=== PATIENT | female | born 1970 | race Hispanic/Latino ===

== ENCOUNTER → 2018-10-01 | Emergency (ER) | payer OTHER ==
[~2018-10-01] MED LIST: CEFTRIAXONE/SWI 1gm 1 GM/10 ML SYR ONE; FENTANYL CITR 100 MCG/2 ML ONE; KETOROLAC 30 MG/ML INJ ONE; TRAMADOL HCL 50 MG TAB ONE
--- OUTSIDE RECORDS SUMMARY | 2018-10-01 00:47 | XMS REPORT ---
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 Problem Edema R60.9 Active Assessment Depression F32.9 Active Problem Anxiety F41.9 Active Problem Hyperlipemia E78.5 Active Problem Gastro-esophageal reflux disease K21.9 Active without esophagitis Problem Depression F32.9 Active Problem Fatigue R53.83 Active Problem Hand paresthesia R20.2 Active Problem Cervical pain (neck) M54.2 Active Problem Fe deficiency anemia D50.9 Active Problem Internal hemorrhoid K64.8 Active Problem Migraine without aura, not G43.009 Active intractable, without status migrainosus Problem Primary insomnia F51.01 Active Problem Mixed incontinence N39.46 Active Problem Cervical radiculopathy M54.12 Active Problem Dorsalgia, unspecified M54.9 Active Problem Back pain with radiation M54.9 Active Medications Medication Code System Code Instructions Start Date End Date Status Dosage Zoloft [facility] 88344780360 100 MG Orally Active 1 tablet Once a day Results No Known Results Summary Purpose eClinicalWorks Submission
--- OUTSIDE RECORDS SUMMARY | 2018-10-01 00:47 | XMS REPORT ---
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
--- OUTSIDE RECORDS SUMMARY | 2018-10-01 00:47 | XMS REPORT ---
[...] Active arteries Problem Edema R60.9 Active Assessment Foot pain, left M79.672 Active Assessment Plantar fasciitis M72.2 Active Problem Anxiety F41.9 Active Problem Hyperlipemia [...] with radiation M54.9 Active Medications Medication Code Code Instructions Start End Status Dosage System Date [facility] 13769120468 2 MG Orally Active 1 tablet Once a day immediately before bedtime Zyrtec [facility] 13995054350 10 MG Orally Active 1 tablet Allergy Once a day Vitamin D [facility] 38474678055 1000 UNIT Active 1 tablet (Cholecalcife Orally Once a rol) day Ferrous [facility] 24516961381 325 (65 Fe) MG Active 1 tablet Sulfate Orally Once a day Zoloft [facility] 43137859156 100 MG Orally Active 1 tablet Once a day Results Name Result Date Reference Range Unit Abnormality Flag Foot (L) X-Ray Summary Purpose eClinicalWorks Submission
--- OUTSIDE RECORDS SUMMARY | 2018-10-01 00:48 | XMS REPORT ---
[...] Start Date End Date Status Dosage Zoloft [facility] 67914611848 100 MG Orally Active 1 tablet Once a day Results No Known Results Summary Purpose eClinicalWorks Submission
--- OUTSIDE RECORDS SUMMARY | 2018-10-01 00:48 | XMS REPORT ---
:1970 Author Organization eClinicalWorks Care Team Providers Name Role Phone Wayne Alfonso Provider Role Unavailable Allergies No Known Allergies Problems Problem Type Condition Code Onset Dates Condition Status Problem Hyperlipemia E78.5 Active Problem Depression F32.9 Active Problem Fatigue R53.83 Active Problem Internal hemorrhoid K64.8 Active Problem Cervical pain (neck) M54.2 Active Problem Fe deficiency anemia D50.9 Active Problem Hand paresthesia R20.2 Active Problem Migraine without status G43.909 Active migrainosus, not intractable, unspecified migraine type Problem Vitamin D deficiency E55.9 Active Problem Edema R60.9 Active Problem 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 Problem Anxiety F41.9 Active Problem Migraine without aura, not G43.009 Active intractable, without status migrainosus Problem Primary insomnia F51.01 Active Problem Mixed incontinence N39.46 Active Problem Dorsalgia, unspecified M54.9 Active Problem Degenerative joint disease M19.90 Active Problem Kidney stone N20.0 Active Problem Cervical radiculopathy M54.12 Active Problem Obstructive sleep apnea G47.33 Active Assessment Depression F32.9 Active Problem Back pain with radiation M54.9 Active Problem Gastro-esophageal reflux disease K21.9 Active without esophagitis Medications Medication Code System Code Instructions Start Date End Date Status Dosage Zoloft [facility] 28093572370 100 MG Orally Active 1 tablet Once a day Results No Known Results Summary Purpose eClinicalWorks Submission
--- OUTSIDE RECORDS SUMMARY | 2018-10-01 00:48 | XMS REPORT ---
[...] Active arteries Problem Edema R60.9 Active Assessment Acute cystitis without hematuria N30.00 Active Problem Anxiety F41.9 Active Problem Hyperlipemia [...] Instructions Start End Status Dosage System Date Date Vitamin D [facility] 29204483705 1000 UNIT Active 1 tablet (Cholecalcife Orally Once a rol) day Zoloft [facility] 21778798779 100 MG Orally Active 1 tablet Once a day Ferrous [place] 10730285130 325 (65 Fe) MG Active 1 tablet Sulfate Orally Once a day Bactrim DS [facility] 39689567555 800-160 MG March 20March Active 1 tablet Orally Twice a 2017 Zyrtec [facility] 59128283602 10 MG Orally Active 1 tablet Allergy Once a day Lunesta [facility] 55144164863 1 MG Orally Active 1 tablet Once a day immediately before bedtime Results No Known Results Summary Purpose eClinicalWorks Submission
--- OUTSIDE RECORDS SUMMARY | 2018-10-01 00:48 | XMS REPORT ---
:1970 Author Organization eClinicalWorks Care Team Providers Name Role Phone Wayne Alfonso Provider Role Unavailable Allergies No Known Allergies Problems Problem Type Condition Code Onset Dates Condition Status Assessment Back pain with radiation M54.9 Active Assessment Gastro-esophageal reflux disease K21.9 Active without esophagitis Assessment Primary insomnia F51.01 Active Assessment Obstructive sleep apnea G47.33 Active Assessment Vitamin D deficiency E55.9 Active Assessment Anxiety F41.9 Active Assessment Fe deficiency anemia D50.9 Active Assessment Hyperlipemia E78.5 Active Problem Obstructive sleep apnea G47.33 Active Assessment Migraine without status G43.909 Active migrainosus, not intractable, unspecified migraine type Problem Gastro-esophageal reflux disease K21.9 Active without esophagitis Assessment Depression F32.9 Active Problem Hyperlipemia E78.5 Active Problem Depression F32.9 Active Problem Fatigue R53.83 Active Problem Internal hemorrhoid K64.8 Active Problem Fe deficiency anemia D50.9 Active Problem Cervical pain (neck) M54.2 Active Problem Hand paresthesia R20.2 Active Problem [...] Active Problem Cervical radiculopathy M54.12 Active Problem Back pain with radiation M54.9 Active Medications Medication Code Code Instructions Start End Status Dosage System Date Date Zoloft [facility] 03760774938 100 MG Orally Active 1 tablet Once a day Vitamin D [facility] 89028993541 1000 UNIT Active 1 tablet (Cholecalcife Orally Once a rol) day Bupap [facility] 64122135647 50-300 MG March 28, Active 1 tablet as Orally every 2017 needed hrs PRN WARD Zyrtec [facility] 00719356994 10 MG Orally Active 1 tablet Allergy Once a day Ferrous [facility] 60008585702 325 (65 Fe) MG Active 1 tablet Sulfate Orally Once a day Lunesta [facility] 59509140323 2 MG Orally Active 1 tablet Once a day immediately before bedtime Results No Known Results Summary Purpose eClinicalWorks Submission
--- OUTSIDE RECORDS SUMMARY | 2018-10-01 00:48 | XMS REPORT ---
[...] Problem Obstructive sleep apnea G47.33 Active Assessment Acute cystitis without hematuria N30.00 Active Problem Back pain with radiation M54.9 Active Problem Gastro-esophageal reflux disease K21.9 Active without esophagitis Medications Medication Code System Code Instructions Start End Date Status Dosage Date Cipro ND 37331764538 500 MG Orally Apr 22, Active 1 tablet every 12 hrs 2017 Bactrim DS ND 92094574139 800-160 MG Apr 18, Apr 23, Inactive 1 tablet Orally Twice a 20172017 Results No Known Results Summary Purpose eClinicalWorks Submission
--- OUTSIDE RECORDS SUMMARY | 2018-10-01 00:48 | XMS REPORT ---
[...] Problem Obstructive sleep apnea G47.33 Active Problem Back pain with radiation M54.9 Active Problem Gastro-esophageal reflux disease K21.9 Active without esophagitis Medications Medication Code Code Instructions Start End Date Status Dosage System Date Zyrtec Allergy [facility] 74135468156 10 MG Orally December Active 1 tablet Once a day 2018 Results No Known Results Summary Purpose eClinicalWorks Submission
--- OUTSIDE RECORDS SUMMARY | 2018-10-01 00:48 | XMS REPORT ---
[...] M19.90 Active Problem Kidney stone N20.0 Active Assessment Recurrent UTI N39.0 Active Problem Cervical radiculopathy M54.12 Active Problem Obstructive sleep apnea G47.33 Active Assessment Acute cystitis without hematuria N30.00 Active Problem Back pain with radiation M54.9 Active Problem Gastro-esophageal reflux disease K21.9 Active without esophagitis Medications Medication Code Code Instructions Start End Status Dosage System Date Date Vitamin D [facility] 03412815753 1000 UNIT Active 1 tablet (Cholecalcife Orally Once a rol) day Zoloft ND 96509853409 100 MG Orally Active 1 tablet Once a day Bupap [facility] 81037917279 50-300 MG March 28, Active 1 tablet as Orally every 8 2017 needed hrs PRN WARD Lunesta [facility] 54257705866 2 MG Orally Active 1 tablet Once a day immediately before bedtime Bactrim DS [facility] 40142313330 800-160 MG Apr 18, Apr 23, Active 1 tablet Orally Twice a 2018 2018 day Ferrous ND 17762100726 325 (65 Fe) MG Active 1 tablet Sulfate Orally Once a day [facility] 11688546940 10 MG Orally Active 1 tablet Allergy Once a day Results No Known Results Summary Purpose eClinicalWorks Submission
[2018-10-01 01:36] LABS: Absolute Lymphocytes (CBC) 2.2 K/uL (0.7-4.9); Absolute Monocytes 0.6 K/uL (0.1-1.3); Absolute Neutrophil 3.8 K/uL (1.8-8.0); Basophils % 1.1 % (0-1.3); Eosinophils % 4.2 % (0-4.4); Hematocrit 41.8 % (36.0-45.0); Lymphocytes % 31.7 % (15.3-44.8); MPV 7.7 fL (7.6-11.3); Monocytes % 8.9 % (3.3-12.3); RBC Red Blood Cell Count 4.66 M/uL (3.86-4.86)
[2018-10-01 01:59] LABS: ALT/SGPT 24 U/L (12-78); AST/SGOT 21 U/L (15-37); Albumin 3.7 g/dL (3.4-5.0); Alkaline Phosphatase 92 U/L (45-117); BUN Blood Urea Nitrogen 23 mg/dL (7-18); Bicarbonate 26 mmol/L (21-32); Bilirubin Direct < 0.1 mg/dL (0-0.2); Bilirubin Total 0.2 mg/dL (0.2-1.0); Glucose Level 91 mg/dL (74-106); Lipase 121 U/L (73-393); Potassium 3.7 mmol/L (3.5-5.1); Protein, Total 7.6 g/dL (6.4-8.2); Sodium Level 143 mmol/L (136-145)
[2018-10-01 02:03] LABS: Urine Bacteria >50 /HPF (<20); Urine Culture Reflex Order REFLEXED; Urine RBC NONE SEEN /HPF (NONE SEEN)
--- NOTE | 2018-10-01 08:30 | RAD REPORT ---
EXAM DESCRIPTION: CT - Stone Protocol - 10/01/2018 6:56 am CLINICAL HISTORY: Flank pain. Pain COMPARISON: Abdomen Pelvis W Contrast dated 01/03/2017; Small Bowel Series dated 09/19/2018 TECHNIQUE: Axial images were obtained without oral or IV contrast. Lack of contrast limits solid org an and vascular assessment. The [id number] spans the entirety of the system partially obscuring uppermost abdomen and lung bases. Coronal reformatted images were obtained and reviewed. All CT scans are performed using dose optimization technique as appropriate and may include automated exposure control or mA/KV adjustment according to patient size. FINDINGS: The lower lung rodriguez are clear. Imaged portions of the liver and spleen show no suspicious findings on non-contrast imaging. The panc reas and adrenal glands are normal.Cholelithiasis. No pathologic lymphadenopathy in the abdomen or pe lvis. Punctate right nephrolithiasis is seen without hydronephrosis. No bowel obstruction, free air, free fluid or abscess. Normal appendix noted. Moderate lumbosacral degenerative changes. IMPRESSION: Cholelithiasis. Punctate right nephrolithiasis without hydronephrosis.
== END ==
LOC: ER 00:44
DX: N39.0 Urinary tract infection, site not specified (principal); F32.9 Major depressive disorder, single episode, unspecified; Z88.5 Allergy status to narcotic agent; Z87.442 Personal history of urinary calculi
CPT/HCPCS: 36415; 74176; 76377; 80048; 80076; 81015; 83690; 85025; 87077; 87086; 87088; 87186; J0696; J3010

== ENCOUNTER 2019-09-30 01:04 | Emergency (ER) | payer OTHER ==
--- OUTSIDE RECORDS SUMMARY | 2019-09-30 01:08 | XMS REPORT ---
:1970 Author Organization eClinicalWorks Care Team Providers Name Role Phone Brian Perez Provider Role Unavailable Allergies, Adverse Reactions, Alerts Substance Reaction Event Type codeine Info Not Available Drug Allergy Problems Problem Type Condition Code Onset Dates [...] Start End Status Dosage System Date Date Ferrous Sulfate [facility] 77149539809 325 (65 Fe) MG Active 1 tablet Orally Once a day Zoloft ND 26031007889 100 MG Orally Active 1 tablet Once a day Cyclobenzaprine ND 42558714441 10 MG Orally Active 1 tablet as HCl Three times a needed day Bupap ND 21730349353 50-300 MG March Active 1 tablet as Orally every 8 19, needed hrs PRN 2017 Vitamin D [facility] 37775487262 1000 UNIT Active 1 tablet (Cholecalciferol) Orally Once a day Zyrtec Allergy [facility] 34182963195 10 MG Orally December Active 1 tablet Once a day 2018 Cipro NDC 19703013502 500 MG Orally Apr 22, Active 1 tablet every 12 hrs 2017 Tramadol HCl [facility] 14540689239 50 MG Orally Active 1 tablet as every 6 hrs needed Lunesta [facility] 79630759452 1 MG Orally Active 1 tablet Once a day immediately before bedtime Results No Known Results Summary Purpose eClinicalWorks Submission
--- OUTSIDE RECORDS SUMMARY | 2019-09-30 01:08 | XMS REPORT ---
:1970 Author Organization eClinicalWorks Care Team Providers Name Role Phone Wayne Alfonso Provider Role Unavailable Allergies No Known Allergies Problems Problem Type Condition Code Onset Dates Condition Status Problem Fatigue R53.83 Active Problem Edema R60.9 Active Problem Depression F32.9 Active Problem Migraine without status G43.909 Active migrainosus, not intractable, unspecified migraine type Problem Mixed incontinence N39.46 Active Problem Internal hemorrhoid K64.8 Active Problem Cervical pain (neck) M54.2 Active Problem Hand paresthesia R20.2 Active Problem Osteoarthritis of left hip, M16.12 Active unspecified osteoarthritis type Problem Anxiety F41.9 Active Problem Vitamin D deficiency E55.9 Active Problem Fe deficiency anemia D50.9 Active Problem 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 Problem Primary insomnia F51.01 Active Problem Cervical radiculopathy M54.12 Active Problem Dorsalgia, unspecified M54.9 Active Problem Migraine without aura, not G43.009 Active intractable, without status migrainosus Problem Kidney stone N20.0 Active Problem Obstructive sleep apnea G47.33 Active Assessment Depression F32.9 Active Problem Back pain with radiation M54.9 Active Problem Gastro-esophageal reflux disease K21.9 Active without esophagitis Problem Degenerative joint disease M19.90 Active Problem Hyperlipemia E78.5 Active Medications Medication Code Code Instructions Start End Date Status Dosage System Date Zyrtec Allergy [facility] 04988911695 10 MG Orally Active 1 tablet Once a day Zoloft [facility] 05497437759 100 MG Orally Active 1 tablet Once a day Results No Known Results Summary Purpose eClinicalWorks Submission
--- OUTSIDE RECORDS SUMMARY | 2019-09-30 01:08 | XMS REPORT ---
:1970 Author Organization eClinicalWorks Care Team Providers Name Role Phone Kaden Wayne Provider Role Unavailable Allergies, Adverse Reactions, Alerts Substance Reaction Event Type codeine Info Not Available Drug Allergy Problems Problem Type Condition Code Onset Dates Condition Status Assessment Gastro-esophageal reflux disease K21.9 Active without esophagitis Assessment Primary insomnia F51.01 Active Assessment Anxiety F41.9 Active Assessment Obstructive sleep apnea G47.33 Active Assessment Migraine without status G43.909 Active migrainosus, not intractable, unspecified migraine type Assessment Osteoarthritis of left hip, M16.12 Active unspecified osteoarthritis type Assessment Vitamin D deficiency E55.9 Active Assessment Fe deficiency anemia D50.9 Active Assessment Hyperlipemia E78.5 Active Problem Gastro-esophageal reflux disease K21.9 Active without esophagitis Assessment Depression F32.9 Active Problem Hyperlipemia E78.5 Active Problem Fatigue R53.83 Active Problem Edema R60.9 Active Problem Depression F32.9 Active Problem Migraine without status G43.909 Active migrainosus, not intractable, unspecified migraine type Problem Internal hemorrhoid K64.8 Active Problem Mixed incontinence N39.46 Active Problem Cervical pain (neck) M54.2 Active Problem Osteoarthritis of left hip, M16.12 Active unspecified osteoarthritis type Problem Hand paresthesia R20.2 Active Problem Anxiety F41.9 Active Problem Vitamin D deficiency E55.9 Active Problem Fe deficiency anemia D50.9 Active Problem 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 Problem Primary insomnia F51.01 Active Assessment Back pain with radiation M54.9 Active Problem Cervical radiculopathy M54.12 Active Problem Dorsalgia, unspecified M54.9 Active Problem Migraine without aura, not G43.009 Active intractable, without status migrainosus Problem Kidney stone N20.0 Active Problem Obstructive sleep apnea G47.33 Active Problem Back pain with radiation M54.9 Active Problem Degenerative joint disease M19.90 Active Medications Medication Code Code Instructions Start End Status Dosage System Date Date Vitamin D3 [facility] 59321236235 42423 UNIT November Active 1 capsule Orally Once a 04, week x 12 2019 weeks Breo Ellipta [facility] 55639732955 100-25 MCG/INH Active 1 puff Inhalation Once a day Vitamin D [facility] 63540105790 1000 UNIT Active 1 tablet (Cholecalciferol) Orally Once a day Lunesta [facility] 32606106745 2 MG Orally Active 1 tablet Once a day immediately before bedtime Cyclobenzaprine [facility] 71102519483 10 MG Orally Active 1 tablet as HCl Three times a needed day Bupap [facility] 44145555212 50-300 MG Active 1 tablet as Orally every 8 needed hrs PRN WARD Zoloft [facility] 62341108469 100 MG Orally Active 1 tablet Once a day Ferrous Sulfate [facility] 97573525857 325 (65 Fe) MG Active 1 tablet Orally Once a day Zyrtec Allergy [facility] 60750431359 10 MG Orally Active 1 tablet Once a day Zoloft [facility] 75196841970 100 MG Orally Active 1 tablet Once a day Tramadol HCl [facility] 84018595276 50 MG Orally Active 1 tablet as every 6 hrs needed Results No Known Results Summary Purpose eClinicalWorks Submission
--- OUTSIDE RECORDS SUMMARY | 2019-09-30 01:09 | XMS REPORT ---
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 Problem Hyperlipemia E78.5 Active Problem Fe deficiency anemia D50.9 Active Problem Right lower quadrant abdominal pain R10.31 Active Problem Pelvic pain R10.2 Active Problem Cervical radiculopathy M54.12 Active Problem Primary insomnia F51.01 Active Problem Bipolar II disorder F31.81 Active Problem Migraine without aura, not G43.009 Active intractable, without status migrainosus Problem Migraine without status G43.909 Active migrainosus, not intractable, unspecified migraine type Problem Internal hemorrhoid K64.8 Active Problem Follow up Z09 Active Problem Osteoarthritis of left hip, M16.12 Active unspecified osteoarthritis type Problem Depression F32.9 Active Problem Edema R60.9 Active Problem Back pain with radiation M54.9 Active Problem Fatigue R53.83 Active Problem Degenerative joint disease M19.90 Active Problem Kidney stone N20.0 Active Problem Vitamin D deficiency E55.9 Active Problem Anxiety F41.9 Active Medications Medication Code System Code Instructions Start End Date Status Dosage Date Bactrim DS [facility] 56201933049 800-160 MG Orally November 21, November 24, Active 1 tablet Twice a day 2018 2018 Results No Known Results Summary Purpose eClinicalWorks Submission
--- OUTSIDE RECORDS SUMMARY | 2019-09-30 01:09 | XMS REPORT ---
[...] Problem Anxiety F41.9 Active Medications Medication Code Code Instructions Start End Status Dosage System Date Date Lunesta [facility] 25050680661 2 MG Orally Active 1 tablet Once a day immediately before bedtime Zoloft [facility] 23451862945 100 MG Orally Active 1 tablet Once a day HydrOXYzine HCl [facility] 48544201001 25 MG Orally Active 1 tablet as every 8 hrs needed Prazosin HCl [facility] 69647628260 1 MG Orally Active 1 capsule at Once a day bedtime Vitamin D [facility] 43285988999 1000 UNIT Active 1 tablet (Cholecalciferol) Orally Once a day Cyclobenzaprine [facility] 88258702016 10 MG Orally Active 1 tablet as HCl Three times a needed day Breo Ellipta [facility] 06878681935 100-25 MCG/INH Active 1 puff Inhalation Once a day Zoloft ND 92206599170 100 MG Orally Active 1 tablet Once a day Zyrtec Allergy [facility] 13392980358 10 MG Orally Active 1 tablet Once a day Vitamin D3 [facility] 21752521579 November Active 1 capsule Orally Once a 04, week x 12 2019 weeks Ferrous Sulfate [facility] 06188710171 325 (65 Fe) MG Active 1 tablet Orally Once a day Tramadol HCl [facility] 77177426899 50 MG Orally Active 1 tablet as every 6 hrs needed Bupap [facility] 67646226163 50-300 MG Active 1 tablet as Orally every 8 needed hrs PRN WARD Results No Known Results Summary Purpose eClinicalWorks Submission
--- OUTSIDE RECORDS SUMMARY | 2019-09-30 01:09 | XMS REPORT ---
[...] E55.9 Active Problem Anxiety F41.9 Active Medications No Known Medications Results No Known Results Summary Purpose eClinicalWorks Submission
--- OUTSIDE RECORDS SUMMARY | 2019-09-30 01:09 | XMS REPORT ---
:1970 Author Organization eClinicalWorks Care Team Providers Name Role Phone Trveor Desai Provider Role Unavailable Allergies, Adverse Reactions, Alerts Substance Reaction Event Type Cipro hives Drug Allergy Problems Problem Type Condition Code Onset Dates Condition Status Assessment Right lower quadrant abdominal pain R10.31 Active Assessment Recurrent urinary tract infection N39.0 Active Assessment Pelvic pain R10.2 Active Assessment Follow up Z09 Active Problem Hand paresthesia R20.2 Active Problem [...] Start End Status Dosage System Date Date Cyclobenzaprine ND 07426372043 10 MG Orally Active 1 tablet as HCl Three times a needed day Breo Ellipta ND 81321524966 100-25 MCG/INH Active 1 puff Inhalation Once a day Zyrtec Allergy ND 79507332695 10 MG Orally Active 1 tablet Once a day Vitamin D3 [facility] 78536045493 17694 UNIT November Active 1 capsule Orally Once a 04, week x 12 2019 weeks Lunesta [facility] 99729834298 2 MG Orally Active 1 tablet Once a day immediately before bedtime Zoloft [facility] 98062482073 100 MG Orally Active 1 tablet Once a day Bupap [facility] 80656818368 50-300 MG Active 1 tablet as Orally every 8 needed hrs PRN WARD Tramadol HCl [facility] 78924382670 50 MG Orally Active 1 tablet as every 6 hrs needed Zoloft [facility] 53320616880 100 MG Orally Active 1 tablet Once a day Ferrous Sulfate [facility] 18060336703 325 (65 Fe) MG Active 1 tablet Orally Once a day Vitamin D [facility] 81098924529 1000 UNIT Active 1 tablet (Cholecalciferol) Orally Once a day Results No Known Results Summary Purpose eClinicalWorks Submission
--- OUTSIDE RECORDS SUMMARY | 2019-09-30 01:09 | XMS REPORT ---
[...] Start End Date Status Dosage System Date Amoxicillin-Pot [facility] 71251746709 875-125 MG November Active 1 tablet Clavulanate Orally every 12 2018 hrs Results No Known Results Summary Purpose eClinicalWorks Submission
--- OUTSIDE RECORDS SUMMARY | 2019-09-30 01:10 | XMS REPORT ---
:1970 Author Organization eClinicalWorks Care Team Providers Name Role Phone Jose Stokes Provider Role Unavailable Allergies No Known Allergies [...]
--- OUTSIDE RECORDS SUMMARY | 2019-09-30 01:10 | XMS REPORT ---
:1970 Author Organization eClinicalWorks Care Team Providers Name Role Phone Wayne Alfonso Provider Role Unavailable Allergies No Known Allergies Problems Problem Type Condition Code Onset Dates Condition Status Assessment Vitamin D deficiency E55.9 Active Assessment Fe deficiency anemia D50.9 Active Assessment Hyperlipemia E78.5 Active Assessment Gastro-esophageal reflux disease K21.9 Active without esophagitis Assessment Depression F32.9 Active Problem Hand paresthesia R20.2 Active Problem Cervical pain (neck) M54.2 Active Problem Mixed incontinence N39.46 Active Problem Dorsalgia, unspecified M54.9 Active Problem Gastro-esophageal reflux disease K21.9 Active without esophagitis Problem 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 Problem Migraine without aura, not G43.009 Active intractable, without status migrainosus Problem Fe deficiency anemia D50.9 Active Problem Internal hemorrhoid K64.8 Active Problem Hyperlipemia E78.5 Active Problem Adult BMI 45.0-49.9 kg/sq m Z68.42 Active Problem Follow up Z09 Active Problem Back pain with radiation M54.9 Active Problem Cervical radiculopathy M54.12 Active Problem Bipolar II disorder F31.81 Active Problem Primary insomnia F51.01 Active Problem Osteoarthritis of left hip, M16.12 Active unspecified osteoarthritis type Problem Migraine without status G43.909 Active migrainosus, not intractable, unspecified migraine type Problem Right lower quadrant abdominal pain R10.31 Active Problem Pelvic pain R10.2 Active Assessment Adult BMI 45.0-49.9 kg/sq m Z68.42 Active Problem Edema R60.9 Active Assessment Migraine without status G43.909 Active migrainosus, not intractable, unspecified migraine type Problem Vitamin D deficiency E55.9 Active Problem Fatigue R53.83 Active Problem Depression F32.9 Active Problem Kidney stone N20.0 Active Problem Obstructive sleep apnea G47.33 Active Problem Anxiety F41.9 Active Problem Degenerative joint disease M19.90 Active Medications No Known Medications Results No Known Results Summary Purpose eClinicalWorks Submission
--- OUTSIDE RECORDS SUMMARY | 2019-09-30 01:10 | XMS REPORT ---
:1970 Author Organization eClinicalWorks Care Team Providers Name Role Phone AlfonsoWayne Provider Role Unavailable Allergies, Adverse Reactions, Alerts Substance Reaction Event Type Cipro hives Drug Allergy Problems Problem Type Condition Code Onset Dates Condition Status Assessment Vitamin D deficiency E55.9 Active Assessment Osteoarthritis of left hip, M16.12 Active unspecified osteoarthritis type Assessment Hyperlipemia E78.5 Active Assessment Fe deficiency anemia D50.9 Active Assessment Depression F32.9 Active Problem Hand paresthesia [...] M54.9 Active Problem Cervical radiculopathy M54.12 Active Assessment Adult BMI 45.0-49.9 kg/sq m Z68.42 Active Problem Bipolar II disorder F31.81 Active Problem Primary insomnia F51.01 Active Problem Osteoarthritis of left hip, M16.12 Active unspecified osteoarthritis type Problem Migraine without status G43.909 Active migrainosus, not intractable, unspecified migraine type Problem Right lower quadrant abdominal pain R10.31 Active Problem Pelvic pain R10.2 Active Assessment Anxiety F41.9 Active Problem Edema R60.9 Active Assessment Migraine without status G43.909 Active migrainosus, not intractable, unspecified migraine type Problem Vitamin D deficiency E55.9 Active Assessment Gastro-esophageal reflux disease K21.9 Active without esophagitis Problem Fatigue R53.83 Active Assessment Obstructive sleep apnea G47.33 Active Problem Depression F32.9 Active Assessment Back pain with radiation M54.9 Active Problem Kidney stone N20.0 Active Assessment Primary insomnia F51.01 Active Problem Obstructive sleep apnea G47.33 Active Problem Anxiety F41.9 Active Problem Degenerative joint disease M19.90 Active Medications Medication Code Code Instructions Start End Status Dosage System Date Date Zyrtec Allergy [facility] 34511474613 10 MG Orally Active 1 tablet Once a day Lunesta [facility] 43445279112 2 MG Orally Active 1 tablet Once a day immediately before bedtime Bupap [facility] 69546511672 50-300 MG Active 1 tablet as Orally every 8 needed hrs PRN WARD Zoloft [facility] 11508115731 50 MG Orally Active 1 tablet Once a day Vitamin D [facility] 08225086632 1000 UNIT Active 1 tablet (Cholecalciferol) Orally Once a day Zoloft [facility] 09571523196 100 MG Orally Active 1 tablet Once a day Vitamin D3 [facility] 36959977534 81802 UNIT Active 1 capsule Orally Once a week x 12 weeks Cyclobenzaprine [facility] 60005231235 10 MG Orally Active 1 tablet as HCl Three times a needed day Fenofibrate [facility] 62936933443 145 MG Orally January 08, Active 1 tablet with Once a day 2018 food Breo Ellipta [facility] 25010427501 100-25 MCG/INH Active 1 puff Inhalation Once a day Ferrous Sulfate [facility] 87169491603 325 (65 Fe) MG Active 1 tablet Orally Once a day Results No Known Results Summary Purpose eClinicalWorks Submission
--- OUTSIDE RECORDS SUMMARY | 2019-09-30 01:11 | XMS REPORT ---
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 Problem Fe deficiency anemia D50.9 Active Problem Primary insomnia F51.01 Active Problem Hyperlipemia E78.5 Active Problem Migraine without status G43.909 Active migrainosus, not intractable, unspecified migraine type Problem Internal hemorrhoid K64.8 Active Problem Bipolar II disorder F31.81 Active Problem Adult BMI 45.0-49.9 kg/sq m Z68.42 Active Problem Fatigue R53.83 Active Problem Back pain with radiation M54.9 Active Problem Non-seasonal allergic rhinitis, J30.89 Active unspecified trigger Problem Cervical radiculopathy M54.12 Active Problem Pelvic pain R10.2 Active Problem Osteoarthritis of left hip, M16.12 Active unspecified osteoarthritis type Problem Follow up Z09 Active Problem Right lower quadrant abdominal pain R10.31 Active Problem Vitamin D deficiency E55.9 Active Problem Anxiety F41.9 Active Problem Depression F32.9 Active Problem Edema R60.9 Active Problem Obstructive sleep apnea G47.33 Active Problem Gastro-esophageal reflux disease K21.9 Active without esophagitis Problem Degenerative joint disease M19.90 Active Problem Kidney stone N20.0 Active Medications No Known Medications Results No Known Results Summary Purpose eClinicalWorks Submission
--- OUTSIDE RECORDS SUMMARY | 2019-09-30 01:11 | XMS REPORT ---
:1970 Author Organization eClinicalWorks Care Team Providers Name Role Phone Kaden Wayne Provider Role Unavailable Allergies, Adverse Reactions, Alerts Substance Reaction Event Type Cipro hives Drug Allergy Problems Problem Type Condition Code Onset Dates Condition Status Assessment Hyperlipemia E78.5 Active Assessment Fe deficiency anemia D50.9 Active Assessment Acute cystitis without hematuria N30.00 Active Assessment Depression F32.9 Active Problem Hand [...] Problem Back pain with radiation M54.9 Active Assessment Primary insomnia F51.01 Active Problem Non-seasonal allergic rhinitis, J30.89 Active unspecified trigger Problem Cervical radiculopathy M54.12 Active Assessment Back pain with radiation M54.9 Active Problem Pelvic pain R10.2 Active Assessment Adult BMI 45.0-49.9 kg/sq m Z68.42 Active Problem Osteoarthritis of left hip, M16.12 Active unspecified osteoarthritis type Assessment Non-seasonal allergic rhinitis, J30.89 Active unspecified trigger Problem Follow up Z09 Active Problem Right lower quadrant abdominal pain R10.31 Active Assessment Osteoarthritis of left hip, M16.12 Active unspecified osteoarthritis type Problem Vitamin D deficiency E55.9 Active Assessment Vitamin D deficiency E55.9 Active Problem Anxiety F41.9 Active Assessment Anxiety F41.9 Active Problem Depression F32.9 Active Assessment Migraine without status G43.909 Active migrainosus, not intractable, unspecified migraine type Problem Edema R60.9 Active Assessment Gastro-esophageal reflux disease K21.9 Active without esophagitis Problem Obstructive sleep apnea G47.33 Active Assessment Obstructive sleep apnea G47.33 Active Problem Gastro-esophageal reflux disease K21.9 Active without esophagitis Problem Degenerative joint disease M19.90 Active Problem Kidney stone N20.0 Active Medications Medication Code Code Instructions Start End Status Dosage System Date Date Cyclobenzaprine [facility] 66309974343 10 MG Orally Active 1 tablet as HCl Three times a needed day Cetirizine HCl [facility] 91287476512 10 MG Active TAKE ONE (1) TABLET(S) BY MOUTH ONCE A DAY. Zyrtec Allergy [facility] 15088456014 10 MG Orally Active 1 tablet Once a day Lunesta [facility] 18992809316 2 MG Orally Active 1 tablet Once a day immediately before bedtime Zoloft [facility] 27193568724 100 MG Orally Active 1 tablet (100 Once a day + 50) Aripiprazole [facility] 48675221413 10 MG Oral Active TAKE ONE (1) TABLET(S) BY MOUTH AT BEDTIME. Zoloft [facility] 22996531176 50 MG Orally Active 1 tablet (100 Once a day + 50) Vitamin D3 [facility] 92334445900 74185 UNIT Active 1 capsule Orally Once a week x 12 weeks Bupap [facility] 77753684148 50-300 MG Active 1 tablet as Orally every 8 needed hrs PRN WARD Vitamin D [facility] 69165189623 1000 UNIT Active 1 tablet (Cholecalciferol) Orally Once a day Ferrous Sulfate [facility] 55651345938 325 (65 Fe) MG Active 1 tablet Orally Once a day Nitrofurantoin [facility] 70307227899 100 MG Orally Sep 15Sep Active 1 capsule at Monohyd Macro BID 2019 11, bedtime with 2019 food Pyridium ND 73331334431 200 MG Orally Sep 15Sep Active 1 tablet Three times a 2019 08, after meals day 2019 HydrOXYzine HCl [facility] 35166605486 50 MG Oral Active TAKE ONE (1) TABLET(S) BY MOUTH THREE TIMES A DAY NEEDED FOR ACUTE ANXIETY OR INSOMNIA. Fenofibrate [facility] 94799467712 145 MG Orally Active 1 tablet with Once a day food Breo Ellipta [facility] 07544037045 100-25 MCG/INH Active 1 puff Inhalation Once a day Zyrtec Allergy [facility] 62582897506 10 MG Orally Active 1 tablet Once a day Prazosin HCl [facility] 17512081994 1 MG Oral Active TAKE ONE (1) CAPSULE(S) BY MOUTH ONCE A DAY AT BEDTIME. Results Name Result Date Reference Range Unit Abnormality Flag Urine Dip Stick ----Appearance Cloudy 20190915 ----SP. Gr 1.030 20190915 ----pH 6.0 20190915 ----Ketone Trace 20190915 ----Glucose NEG 20190915 ----Blood 3+ 20190915 ----Protein 3+ 20190915 ----Nitrite POS 20190915 ----Leukocytes 3+ 20190915 Summary Purpose eClinicalWorks Submission
--- OUTSIDE RECORDS SUMMARY | 2019-09-30 01:11 | XMS REPORT ---
[...] Start End Status Dosage System Date Date Bactrim DS NDC 68098409618 800-160 MG Sep 19Sep Active 1 tablet Orally Twice a 2019, day 2019 Nitrofurantoin NDC 16036883228 100 MG Orally Inactive 1 capsule Monohyd Macro BID at bedtime with food Results No Known Results Summary Purpose eClinicalWorks Submission
[2019-09-30] MEDS ORDERED: DIPHENHYDRAMINE 50 MG/ML VIAL ONE (01:30)
[2019-09-30] MEDS ORDERED: FAMOTIDINE 20 MG TAB ONE (01:31)
[2019-09-30] MEDS ORDERED: predniSONE 20 MG TAB ONE (01:31)
--- NOTE | 2019-09-30 02:19 | EDPHYS ---
Physician Documentation [facility] Name: Cori Wallace Age: 49 yrs Sex: Female : 1970 Arrival Date: 09/30/2019 Time: 01:09 Bed 17 Private MD: ED Physician Uriah Jacob HPI: 09/30 02:13 This 49 yrs old Female presents to ER via Ambulatory with complaints of Hives, snw Lips Swelling. 02:13 Onset: The symptoms/episode began/occurred suddenly. Associated signs and symptoms: snw Pertinent positives: rash all over and lips swelling. The patient has not experienced similar symptoms in the past. The patient has been recently seen by a physician: pt has been on two different abx for a UTI. Just finished Bactrim. Will send urine for culture.. encouraged to list Sulfa as an allergy and not take Bactrim again. 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 - Social history:: Smoking status: Patient denies any tobacco usage or history of. - Ebola Screening: : No symptoms or risks identified at this time. ROS: 02:07 Constitutional: Negative for fever, chills, and weight loss, Eyes: Negative for injury, snw pain, redness, and discharge, Neck: Negative for injury, pain, and swelling, Cardiovascular: Negative for chest pain, palpitations, and edema, Respiratory: Negative for shortness of breath, cough, wheezing, and pleuritic chest pain, Abdomen/GI: Negative for abdominal pain, nausea, vomiting, diarrhea, and constipation, Back: Negative for injury and pain, : Negative for injury, bleeding, discharge, and swelling, MS/Extremity: Negative for injury and deformity, Skin: Negative for injury and discoloration, + rash all over Neuro: Negative for headache, weakness, numbness, tingling, and seizure, Psych: Negative for depression, anxiety, suicide ideation, homicidal ideation, and hallucinations. 02:07 ENT: Positive for lips swelling. Exam: 02:01 Constitutional: This is a well developed, well nourished patient who is awake, alert, snw and in no acute distress. Head/Face: Normocephalic, atraumatic. Eyes: Pupils equal round and reactive to light, extra-ocular motions intact. Lids and lashes normal. Conjunctiva and sclera are non-icteric and not injected. Cornea within normal limits. Periorbital areas with no swelling, redness, or edema. Neck: Trachea midline, no thyromegaly or masses palpated, and no cervical lymphadenopathy. Supple, full range of motion without nuchal rigidity, or vertebral point tenderness. No Meningismus. Chest/axilla: Normal chest wall appearance and motion. Nontender with no deformity. No lesions are appreciated. Cardiovascular: Regular rate and rhythm with a normal S1 and S2. No gallops, murmurs, or rubs. Normal PMI, no JVD. No pulse deficits. Respiratory: Lungs have equal breath sounds bilaterally, clear to auscultation and percussion. No rales, rhonchi or wheezes noted. No increased work of breathing, no retractions or nasal flaring. Abdomen/GI: Soft, non-tender, with normal bowel sounds. No distension or tympany. No guarding or rebound. No evidence of tenderness throughout. Back: No spinal tenderness. No costovertebral tenderness. Full range of motion. MS/ Extremity: Pulses equal, no cyanosis. Neurovascular intact. Full, normal range of motion. Neuro: Awake and alert, GCS 15, oriented to person, place, time, and situation. Cranial nerves II-XII grossly intact. Motor strength 5/5 in all extremities. Sensory grossly intact. Cerebellar exam normal. Normal gait. Psych: Awake, alert, with orientation to person, place and time. Behavior, mood, and affect are within normal limits. 02:01 ENT: TM's: are normal, Nose: is normal, Mouth: Lips: edematous, Oral mucosa: normal, Tongue: is normal. 02:01 Skin: Appearance: normal except for affected area, urticaria, and is diffusely located. Vital Signs: 01:24 BP 140 / 100; Pulse 104; Resp 16; Temp 97.8; Pulse Ox 96% on NC; Weight 145.15 kg (R); hb Height 5 ft. 1 in. (154.94 cm); Pain 0/10; 02:14 BP 105 / 69; Pulse 93; Resp 15; Pulse Ox 96% on R/A; Pain 0/10; hb 01:24 Body Mass Index 60.46 (145.15 kg, 154.94 cm) hb MDM: 01:17 Patient medically screened. [facility] 02:08 Data reviewed: vital signs, nurses notes. Data interpreted: Pulse oximetry: on room air snw is 96 %. Interpretation: acceptable. Counseling: I had a detailed discussion with the patient and/or guardian regarding: the historical points, exam findings, and any diagnostic results supporting the discharge/admit diagnosis, the presence of at least one elevated blood pressure reading (>120/80) during this emergency department visit, lab results, the need for outpatient follow up, to return to the emergency department if symptoms worsen or persist or if there are any questions or concerns that arise at home. Response to treatment: the patient's symptoms have mildly improved after treatment. 09/30 01:24 Order name: Urine Culture snw 09/30 02:10 Order name: Urine Dipstick--Ancillary (enter results) mw2 Administered Medications: 01:33 Drug: Benadryl 50 mg Route: IM; Site: right deltoid; 02:13 Follow up: Response: No adverse reaction hb 01:33 Drug: predniSONE 40 mg Route: PO; 02:13 Follow up: Response: No adverse reaction hb 01:33 Drug: Pepcid 20 mg Route: PO; 02:13 Follow up: Response: No adverse reaction hb Disposition: 07:46 Co-signature as Attending Physician, Uriah Jacob MD I agree with the assessment and [facility] plan of care. Disposition: 09/30/19 02:18 Discharged to Home. Impression: Urticaria, unspecified, Allergy status to other anti-infective agents status. - Condition is Stable. - Discharge Instructions: Allergies, Adult, Hives. - Prescriptions for Zyrtec 10 mg Oral Tablet - take 1 tablet by ORAL route once daily As needed; 20 tablet. Prednisone 20 mg Oral Tablet - take 2 tablet by ORAL route once daily for 5 days; 10 tablet. Pepcid 20 mg Oral Tablet - take 1 tablet by ORAL route once daily; 20 tablet. - Work release form, Medication Reconciliation Form, Thank You Letter, Antibiotic Education, Prescription Opioid Use form. - Follow up: Private Physician; When: Tomorrow; Reason: Recheck today's complaints, Continuance of care, Re-evaluation by your physician. Follow up: Emergency Department; When: As needed; Reason: Worsening of condition. Signatures: Dispatcher [employer] EDMS Uriah Jacob, Britt Macias MD, cha, SHEEP BONER-C SHEEP BONER-Csnw Meera Kitchen, RN RN Karina Chavez Corrections: (The following items were deleted from the chart) 02:34 02:18 09/30/2019 02:18 Discharged to Home. Impression: Urticaria, unspecified; Allergy hb status to other anti-infective agents status. Condition is Stable. Forms are Medication Reconciliation Form, Thank You Letter, Antibiotic Education, Prescription Opioid Use. Follow up: Private Physician; When: Tomorrow; Reason: Recheck today's complaints, Continuance of care, Re-evaluation by your physician. Follow up: Emergency Department; When: As needed; Reason: Worsening of condition. snw
--- NOTE | 2019-09-30 02:19 | ER ---
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 hb Denies SOB/vomiting. Recently completed Bactrim for UTI. Transition of care: patient was not received from another setting of care. Onset: The symptoms/episode began/occurred gradually. Anaphylaxis evaluation, no signs or symptoms of anaphylaxis were noted. Onset of symptoms was September 28, 2019. Risk Assessment: Do you want to hurt yourself or someone else? Patient reports no desire to harm self or others. Initial Sepsis Screen: Does the patient meet any 2 criteria? No. Patient's initial sepsis screen is negative. Does the patient have a suspected source of infection? No. Patient's initial sepsis screen is negative. Care prior to arrival: None. 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 - Social history:: Smoking status: Patient denies any tobacco usage or history of. - Ebola Screening: : No symptoms or risks identified at this time. Screenin:25 Abuse screen: Denies threats or abuse. Denies injuries from another. Nutritional hb screening: No deficits noted. Tuberculosis screening: No symptoms or risk factors identified. Fall Risk None identified. Assessment: 01:26 General: Appears in no apparent distress. Behavior is calm, cooperative. Pain: Denies hb pain. Neuro: Level of Consciousness is awake, alert, obeys commands, Oriented to person, place, time, situation. Cardiovascular: Heart tones S1 S2 present Capillary refill < 3 seconds Patient's skin is warm and dry. Respiratory: Airway is patent Respiratory effort is even, unlabored, Respiratory pattern is regular, symmetrical, Breath sounds are clear bilaterally. GI: No signs and/or symptoms were reported involving the gastrointestinal system. : No signs and/or symptoms were reported regarding the genitourinary system. EENT: Reports tongue and lip swelling. Derm: hives on torso and extremities. Musculoskeletal: No signs and/or symptoms reported regarding the musculoskeletal system. 02:14 Reassessment: Patient appears in no apparent distress at this time. Patient and/or hb family updated on plan of care and expected duration. Pain level reassessed. Patient is alert, oriented x 3, equal unlabored respirations, skin warm/dry/pink. Vital Signs: 01:24 BP 140 / 100; Pulse 104; Resp 16; Temp 97.8; Pulse Ox 96% on NC; Weight 145.15 kg (R); hb Height 5 ft. 1 in. (154.94 cm); Pain 0/10; 02:14 BP 105 / 69; Pulse 93; Resp 15; Pulse Ox 96% on R/A; Pain 0/10; hb 01:24 Body Mass Index 60.46 (145.15 kg, 154.94 cm) hb ED Course: 01:09 Patient arrived in ED. [id number] 01:16 Britt Maguire FNP-C [facility]. snw 01:16 Uriah Jacob MD is Attending Physician. snw 01:22 Meera Kitchen, NUBIA is Primary Nurse. hb 01:23 Triage completed. hb 01:25 Arm band placed on. hb 01:26 Patient has correct armband on for positive identification. Bed in low position. Call hb light in reach. 02:13 Urine Dipstick--Ancillary (enter results) Sent. hb 02:33 No provider procedures requiring assistance completed. Patient did not have IV access hb during this emergency room visit. Administered Medications: 01:33 Drug: Benadryl 50 mg Route: IM; Site: right deltoid; wh 02:13 Follow up: Response: No adverse reaction hb 01:33 Drug: predniSONE 40 mg Route: PO; wh 02:13 Follow up: Response: No adverse reaction hb 01:33 Drug: Pepcid 20 mg Route: PO; wh 02:13 Follow up: Response: No adverse reaction hb Outcome: 02:18 Discharge ordered by MD. go 02:33 Discharged to home ambulatory, with family. hb 02:33 Condition: stable 02:33 Discharge instructions given to patient, family, Instructed on discharge instructions, follow up and referral plans. medication usage, Demonstrated understanding of instructions, follow-up care, medications, Prescriptions given X 3. 02:34 Patient left the ED. hb Addendum: 10/03/2019 10:46 Addendum: Culture Results: Positive urine culture. Phone call Attempt #1 No answer, h b voicemail not set up. 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 Denies SOB/vomiting. hb 01: 01:22 Acuity: ANDERSON 3 hb hb
[2019-09-30 02:41] LABS: Urine Blood 3+ (NEG); Urine Glucose NEGATIVE (NEG); Urine Protein 2+ (NEG); Urine Specific Gravity >1.030 (1.005-1.030); Urine pH 5.5 (5.0-7.0)
[2019-09-30 07:28] VITALS: TEMP 97.8; O2SAT 96
[2019-09-30 07:29] VITALS: BP 105/69
== END 2019-09-30 02:34 | disposition home or self-care (01) ==
LOC: ER 01:04
DX: L50.9 Urticaria, unspecified (principal); Z88.3 Allergy status to other anti-infective agents; Z88.6 Allergy status to analgesic agent
CPT/HCPCS: 87088; 87086; 87077 ×2; 87186 ×2; 81003; 96372; 99283; J1200; J7512

== ENCOUNTER 2022-02-22 11:10 | Day surgery (SDC) | payer MEDICARE, OTHER ==
[2022-02-22] MEDS ORDERED: Ringers Lactate 1,000 ML IV ONE (11:21)
[2022-02-22] MEDS ORDERED: TRIAMCINOLONE ACETON 40 MG/ML VIAL ONE (11:26)
[2022-02-22] MEDS ORDERED: LIDOCAINE 1% MPF 5 ML VIAL ONE (11:26)
[2022-02-22] MEDS ORDERED: propofoL 200 MG/20 ML VIAL IV ONE (13:25)
[2022-02-22] MEDS ORDERED: LIDOCAINE 1% MPF 2 ML AMPULE ONE (13:27)
[2022-02-22] MEDS ORDERED: FENTANYL CITR 100 MCG/2 ML ONE (13:27)
[2022-02-22] MEDS ORDERED: ONDANSETRON 4 MG/2 ML VIAL ONE (13:27)
[2022-02-22] MEDS ORDERED: MIDAZOLAM HCL 2 MG/2 ML INJ ONE (13:35)
[2022-02-22 14:43] VITALS: BP 105/70; TEMP 97.2
[2022-02-22 14:46] VITALS: O2SAT 100
--- NOTE | 2022-02-22 16:15 | RAD REPORT ---
EXAM DESCRIPTION: RAD - Fluoro Guide Spinal Inj - 02/22/2022 2:37 pm CLINICAL HISTORY: LUMBAR INJECTION COMPARISON: No comparisons FINDINGS/IMPRESSION: Four intraoperative fluoroscopic images were submitted showing placement of a s su needle at the L5-S1 space for a lumbar injection. Fluoro dose: 4.95 mGy On 0.2 minutes
== END 2022-02-22 14:25 | disposition home or self-care (01) ==
LOC: OR 11:10
PROVIDERS: ATTEND Pain Medicine Interventional Pain Medicine
PROC: B01BZZZ Fluoroscopy of Spinal Cord (ICD-10-PCS; 2022-02-22)
PROC: 3E0S33Z Introduction of Anti-inflammatory into Epidural Space, Percutaneous Approach (ICD-10-PCS; principal; 2022-02-22 13:15)
DX: M54.50 Low back pain, unspecified (principal); G89.29 Other chronic pain; M54.16 Radiculopathy, lumbar region; Z20.822 Contact with and (suspected) exposure to COVID-19
CPT/HCPCS: 77003; 62323; U0003; J2704; J3301; J2250; J3010; J7120; J2405